=== PATIENT | female | born 1970 | race Caucasian/White ===

== ENCOUNTER 2023-11-02 21:01 | Emergency (ER) | payer OTHER ==
[~2023-11-02] VITALS: Ht 175.3 cm; Wt 81.8 kg
[2023-11-02] MEDS ORDERED: BACTROBAN15 GM TOP (22:21)
[2023-11-02 22:31] VITALS: BP 120/77; PULSE 91; TEMP 98.5
== END 2023-11-02 22:31 | disposition home or self-care (01) ==
LOC: COL.ER 21:01
DX: L01.03 Bullous impetigo (principal); L25.5 Unspecified contact dermatitis due to plants, except food; F17.200 Nicotine dependence, unspecified, uncomplicated
CPT/HCPCS: J1010